=== PATIENT | female | born 1955 | race Caucasian/White ===

== ENCOUNTER 2024-11-27 13:12 | Outpatient (CLI) | payer MEDICARE, SELFPAY ==
--- NOTE | ~2024-11-27 | CT_ITS ---
EXAMINATION: CT thoracic spine wo con DATE: 11/27/2024 13:33 INDICATION: Spondylosis and radiculopathy with vertebrogenic low back pain TECHNIQUE: Computed tomography (CT) of the thoracic spine was performed without intravenous contrast. Automated exposure control and iterative reconstruction technique were employed. The dose-length pro duct was 553.59 mGy-cm. COMPARISON: None FINDINGS: 15 degree lower thoracic levoscoliosis. Sagittal alignment is normal. Chronic. 20% anterior vertebral body height loss at T7 and T8. There is severe disc height loss with degenerative endplate changes at C5-C6, T7-T8 and T8-T9, moderate disc height loss at C6-C7 T5-T6, T6-T7, T9-T10 and T10-T 11. Mild disc height loss at T1-T2 through T4-T5. Small amount of ossification along the posterior lo ngitudinal ligament contributing to mild central canal stenosis at T1-T2. Disc bulge with additional mild central canal stenosis at T11-T12. 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 There is mu ltilevel thoracic facet osteoarthritis, moderate severity at the mid to upper thoracic spine and mild at the lower thoracic spine. There is minimal to mild neural foraminal stenosis at several levels in the thoracic spine most prominent on the right at T8-T9 and T9-T10. Visualized portion of the lungs are clear. No pleural effusion. Paravertebral soft tissues are unremarkable. Atherosclerotic coronary artery calcifications. Single lead cardiac pacemaker/defibrillator with lead tip at the apex of the right ventricle. IMPRESSION: 1. 15 degrees lower thoracic levoscoliosis with severe spondylosis. Reviewed, dictated and finalized at location A.
== END 2024-11-27 13:13 | disposition home or self-care (01) ==
LOC: MICIMG 13:15
PROVIDERS: PCP Nurse Practitioner Adult Health; Visit Provider Nurse Practitioner Adult Health
DX: M47.26 Other spondylosis with radiculopathy, lumbar region (principal)
CPT/HCPCS: 72128